=== PATIENT | female | born 1995 | race Caucasian/White ===

== ENCOUNTER 2023-07-06 17:45 | Emergency (ER) | payer MEDICAID ==
[~2023-07-06] VITALS: Ht 157.5 cm; Wt 67.0 kg
[2023-07-06 17:50] VITALS: O2SAT 100
[2023-07-06 19:00] LABS: BASOPHILS % 0.1 % (0.0-2.0); EOSINOPHILS % 0.2 % (0.0-5.0); HEMATOCRIT. 43.3 % (36.0-48.0); LYMPHOCYTES % 8.7 % (20.0-50.0); MEAN CORPUSCULAR HEMOGLOBIN 31.1 pg (28.0-32.0); MEAN CORPUSCULAR HGB CONC 34.6 g/dL (31.0-37.0); MEAN CORPUSCULAR VOLUME 89.8 fL (81.0-99.0); MEAN PLATELET VOLUME 8.4 fl (7.4-10.4); MONOCYTES % 6.1 % (2.0-8.0); NEUTROPHILS % 84.9 % (40.0-76.0); PLATELET 185 x1000/uL (130-400); RED BLOOD CELL COUNT 4.82 mill/uL (4.2-5.4); WHITE BLOOD COUNT 8.8 x1000/uL (4.5-11.0)
[2023-07-06 19:05] LABS: CHLORIDE 104 mEq/L (98-107); POTASSIUM 3.8 mEq/L (3.5-5.1); SODIUM 135 mEq/L (136-145)
[2023-07-06 19:06] LABS: CARBON DIOXIDE 26 mEq/L (21-32)
[2023-07-06 19:07] LABS: CALCIUM 8.9 mg/dL (8.7-10.4)
[2023-07-06 19:11] LABS: CREATININE 0.9 mg/dL (0.6-1.0); GLUCOSE 101 mg/dL (70-105); UREA NITROGEN BLOOD 11 mg/dL (9-23)
[2023-07-06 19:13] LABS: HCG SCREEN NEGATIVE
[2023-07-06] MEDS: ONDANSETRON HCL 4MG/2ML INJ IV STA (21:49)
[2023-07-06] MEDS: KETOROLAC 30MG/ML VIAL IV STA (21:49)
[2023-07-06] MEDS: SODIUM CHLORIDE 0.9% 500 ML IV ONE (22:00)
[2023-07-06 22:05] LABS: ALANINE AMINOTRANSFERASE 32 IU/L (10-49); ASPARTATE AMINOTRANSFERASE 33 IU/L (<34); BILIRUBIN DIRECT 0.1 mg/dL (<=3.0); BILIRUBIN TOTAL 0.5 mg/dL (0.1-1.0); PROTEIN TOTAL 9.3 g/dL (6.0-8.3)
[2023-07-06 22:19] LABS: CLARITY URINE CLEAR (CLEAR); COLOR URINE YELLOW (YELLOW); GLUCOSE URINE NEGATIVE (NEGATIVE); KETONES URINE NEGATIVE (NEGATIVE); LEUKOCYTE ESTERASE URINE 1+ (NEGATIVE); NITRITE URINE NEGATIVE (NEGATIVE); OCCULT BLOOD URINE 3+ (NEGATIVE); PROTEIN URINE NEGATIVE (NEGATIVE); SPECIFIC GRAVITY URINE 1.008 (1.005-1.030); UROBILINOGEN URINE 0.2 E.U./dL (0.2-1.0)
[2023-07-06 22:33] LABS: BACTERIA URINE 1+; RBC URINE 50-100 /hpf (0-2); SQUAMOUS EPITHELIAL CELL URINE 1+ /lpf (RARE/1+)
[2023-07-06] MEDS: ONDANSETRON HCL 4MG/2ML INJ IV NR (23:39)
[2023-07-06] MEDS: KETOROLAC 30MG/ML VIAL IV NR (23:39)
[2023-07-07] MEDS ORDERED: ACET-2708 MT (02:20)
[2023-07-07] MEDS ORDERED: CEPH500C2 MT (02:20)
[2023-07-07] MEDS: CEPHALEXIN 250MG CAPSULE PO NR (02:27)
[2023-07-07] MEDS: CEPHALEXIN 250MG CAPSULE PO ONE (02:27)
[2023-07-07 02:32] VITALS: BP 140/69; PULSE 87; RESP 18; TEMP 98
== END 2023-07-07 02:36 | disposition home or self-care (01) ==
LOC: ER 17:45
DX: R10.9 Unspecified abdominal pain (principal); R30.0 Dysuria
CPT/HCPCS: 99285; 96374; 96361; 96375; 80076; 80048; 81003; 84703; 83690; 85025; 36415; 74176; J1885; J2405; J7030